=== PATIENT | male | born 1995 | race Caucasian/White ===

== ENCOUNTER 2017-01-18 17:36 | Emergency (ER) | payer SELFPAY ==
[~2017-01-18] VITALS: Ht 167.6 cm; Wt 66.2 kg
[2017-01-18 19:38] LABS: BASOPHIL % 0.5 % (0-2); PLATELET COUNT 216 x10^3mcL (130-400)
[2017-01-18 19:50] LABS: CALCIUM 9.7 mg/dL (8.5-10.1); CARBON DIOXIDE 28.4 mmol/L (21-32); CHLORIDE SERUM 83 mmol/L (98-107); CREATININE SERUM 1.1 mg/dL (0.7-1.3); GFR1 > 60 mL/min; GLUCOSE SERUM 106 mg/dL (74-106); POTASSIUM SERUM 3.4 mmol/L (3.5-5.1)
[2017-01-18 20:15] LABS: ALBUMIN 4.9 g/dL (3.4-5.0); ALKALINE PHOSPHATASE 105 U/L (46-116); ALT/SGPT 16 U/L (16-63); AMYLASE 91 U/L (25-115); AST/SGOT 13 U/L (15-37); BILIRUBIN TOTAL 2.18 mg/dL (0.20-1.00); LIPASE 116 IU/L (73-393); SODIUM SERUM 138 mmol/L (136-145); TOTAL PROTEIN, SERUM 7.9 g/dL (6.4-8.2)
[2017-01-18 21:20] VITALS: BP 125/66
== END 2017-01-18 21:20 | disposition home or self-care (01) ==
LOC: ED 17:36
PROVIDERS: Emergency Medicine
DX: R19.7 Diarrhea, unspecified (principal); R11.10 Vomiting, unspecified; F12.90 Cannabis use, unspecified, uncomplicated; Z79.899 Other long term (current) drug therapy
CPT/HCPCS: 80307; 83880; J1885; J2405; J7030

== ENCOUNTER 2017-08-10 10:35 | Emergency (ER) | payer SELFPAY ==
[2017-08-10 11:33] LABS: BASOPHIL % 0.3 % (0-2); PLATELET COUNT 204 x10^3mcL (130-400); RED CELL DISTRIBUTION WIDTH 13.7 % (11.5-14.5)
[2017-08-10 11:36] LABS: CALCIUM 9.3 mg/dL (8.5-10.1); CARBON DIOXIDE 28.2 mmol/L (21-32); CHLORIDE SERUM 104 mmol/L (98-107); CREATININE SERUM 0.9 mg/dL (0.7-1.3); GFR1 > 60 mL/min; GLUCOSE SERUM 101 mg/dL (74-106); POTASSIUM SERUM 3.8 mmol/L (3.5-5.1); SODIUM SERUM 139 mmol/L (136-145)
[2017-08-10 11:38] LABS: ALBUMIN 4.2 g/dL (3.4-5.0); ALKALINE PHOSPHATASE 91 U/L (46-116); ALT/SGPT 17 U/L (16-63); AMYLASE 103 U/L (25-115); AST/SGOT 15 U/L (15-37); BILIRUBIN TOTAL 2.09 mg/dL (0.20-1.00); LIPASE 104 IU/L (73-393); TOTAL PROTEIN, SERUM 7.6 g/dL (6.4-8.2)
[2017-08-10 11:53] LABS: AMPHETAMINE QUAL UR NONE DETECTED (NEG <=1000)
[2017-08-10 13:44] LABS: BASOPHIL % 0.5 % (0-2); PLATELET COUNT 174 x10^3mcL (130-400); RED CELL DISTRIBUTION WIDTH 13.6 % (11.5-14.5)
[2017-08-10 14:19] VITALS: BP 120/65
== END 2017-08-10 14:19 | disposition home or self-care (01) ==
LOC: ED 10:35
PROVIDERS: Emergency Medicine
DX: K29.00 Acute gastritis without bleeding (principal); F12.90 Cannabis use, unspecified, uncomplicated
CPT/HCPCS: 83880; J2550; J3490; Q0092

== ENCOUNTER 2017-08-11 10:19 | Inpatient (IN) | payer MEDICAID ==
[~2017-08-11] VITALS: Ht 170.2 cm; Wt 64.9 kg
[2017-08-11 11:04] LABS: BASOPHIL % 0.2 % (0-2); PLATELET COUNT 271 x10^3mcL (130-400); RED CELL DISTRIBUTION WIDTH 13.6 % (11.5-14.5)
[2017-08-11 11:26] LABS: CALCIUM 9.4 mg/dL (8.5-10.1); CARBON DIOXIDE 24.9 mmol/L (21-32); CHLORIDE SERUM 104 mmol/L (98-107); CREATININE SERUM 1.2 mg/dL (0.7-1.3); GFR1 > 60 mL/min; GLUCOSE SERUM 142 mg/dL (74-106); POTASSIUM SERUM 3.7 mmol/L (3.5-5.1); SODIUM SERUM 140 mmol/L (136-145)
[2017-08-11 11:34] LABS: ALBUMIN 4.3 g/dL (3.4-5.0); ALKALINE PHOSPHATASE 88 U/L (46-116); ALT/SGPT 18 U/L (16-63); AST/SGOT 14 U/L (15-37); BILIRUBIN TOTAL 2.18 mg/dL (0.20-1.00); TOTAL PROTEIN, SERUM 7.7 g/dL (6.4-8.2)
[2017-08-11 12:22] LABS: microscopic required? YES; urine erythrocyte NEGATIVE (NEGATIVE)
[2017-08-11 13:07] VITALS: BP 126/68
[2017-08-11 13:15] LABS: AMPHETAMINE QUAL UR NONE DETECTED (NEG <=1000)
[2017-08-11 13:24] LABS: FREE T4 1.43 ng/dL (0.76-1.46); FREE THYROXINE INDEX 4.1 ug/dL (1.4-4.5); T4(THYROXINE) 10.9 ug/dL (4.7-13.3)
[2017-08-11 13:53] LABS: MAGNESIUM 1.8 mg/dL (1.8-2.4); PHOSPHOROUS 2.6 mg/dL (2.5-4.9)
[2017-08-11 14:56] LABS: T3 TOTAL 1.07 ng/mL
[2017-08-11 16:37] VITALS: BP 123/79
[2017-08-11 21:03] VITALS: BP 136/83
[2017-08-12] VITALS (7 sets, daily range): BP systolic 119–142; BP diastolic 64–87
[2017-08-12 06:45] LABS: BASOPHIL % 0.4 % (0-2); PLATELET COUNT 174 x10^3mcL (130-400); RED CELL DISTRIBUTION WIDTH 13.6 % (11.5-14.5)
[2017-08-12 07:04] LABS: CALCIUM 8.8 mg/dL (8.5-10.1); CARBON DIOXIDE 26.4 mmol/L (21-32); CHLORIDE SERUM 108 mmol/L (98-107); CREATININE SERUM 0.9 mg/dL (0.7-1.3); GFR1 > 60 mL/min; GLUCOSE SERUM 107 mg/dL (74-106); POTASSIUM SERUM 4.2 mmol/L (3.5-5.1); SODIUM SERUM 141 mmol/L (136-145)
[2017-08-13 05:23] VITALS: BP 121/75
[2017-08-13 09:29] VITALS: BP 142/79
[2017-08-13] MEDS ORDERED: LEVOFLOXACIN500 M1 PO (11:36)
[2017-08-13] MEDS ORDERED: GOOD SENSE OMEP20 MG PO (11:37)
[2017-08-13] MEDS ORDERED: LAC PO (11:39)
[2017-08-13] MEDS ORDERED: CARAFATE1 GM/10 ML PO (11:40)
[2017-08-13 12:38] VITALS: BP 128/67
[2017-08-13 13:21] VITALS: BP 128/67
== END 2017-08-13 15:00 | disposition home or self-care (01) | DRG 241 ==
LOC: ED 10:19 → DU 11:59
PROVIDERS: Emergency Medicine; Family Medicine; Internal Medicine; ADMIT Family Medicine
PROC: 0W3P8ZZ Control Bleeding in Gastrointestinal Tract, Via Natural or Artificial Opening Endoscopic (ICD-10-PCS; principal; 2017-08-12 08:30)
PROC: 0DB68ZX Excision of Stomach, Via Natural or Artificial Opening Endoscopic, Diagnostic (ICD-10-PCS; 2017-08-12 08:30)
DX: K26.0 Acute duodenal ulcer with hemorrhage (principal); N17.0 Acute kidney failure with tubular necrosis; D62 Acute posthemorrhagic anemia; R65.10 Systemic inflammatory response syndrome (SIRS) of non-infectious origin without acute organ dysfunction; D18.03 Hemangioma of intra-abdominal structures; F12.10 Cannabis abuse, uncomplicated; Z68.22 Body mass index [BMI] 22.0-22.9, adult
CPT/HCPCS: 43235; 84439; 87046; 87046-59; C9113; G0480; J0171; J1200; J1610; J1956; J2250; J2310; J2405; J3010; J3490; J7030; Q0092

== ENCOUNTER 2019-02-18 13:59 | Emergency (ER) | payer MEDICAID ==
[~2019-02-18] VITALS: Ht 170.2 cm; Wt 77.1 kg
[~2019-02-18 13:59] MED LIST: CARAFATE1 GM/10 ML PO; GOOD SENSE OMEP20 MG PO; LAC PO; LEVOFLOXACIN500 M1 PO
[2019-02-18 15:50] LABS: UA SPECIFIC GRAVITY <=1.005 (1.005-1.035); microscopic required? YES; urine erythrocyte 2+ (NEGATIVE)
[2019-02-18 16:55] VITALS: BP 136/80
== END 2019-02-18 16:55 | disposition home or self-care (01) ==
LOC: ED 13:59
PROVIDERS: Emergency Medicine
DX: R31.9 Hematuria, unspecified (principal); R30.0 Dysuria; Z98.890 Other specified postprocedural states
CPT/HCPCS: 87491; 87591

== ENCOUNTER 2019-05-25 00:30 | Emergency (ER) | payer SELFPAY ==
[~2019-05-25] VITALS: Ht 170.2 cm; Wt 86.2 kg
[2019-05-25 01:39] VITALS: BP 129/80
== END 2019-05-25 01:39 | disposition home or self-care (01) ==
LOC: ED 00:30
DX: N39.0 Urinary tract infection, site not specified (principal)
CPT/HCPCS: 87491; 87591

== ENCOUNTER 2019-09-20 17:35 | Emergency (ER) | payer SELFPAY ==
[~2019-09-20] VITALS: Ht 167.6 cm; Wt 88.5 kg
[2019-09-20 17:45] VITALS: BP 140/80; Ht 167.6 cm; Wt 88.5 kg
== END 2019-09-20 18:45 | disposition home or self-care (01) ==
LOC: ED 17:35
DX: S62.326A Displaced fracture of shaft of fifth metacarpal bone, right hand, initial encounter for closed fracture (principal); Z98.890 Other specified postprocedural states; Y04.0XXA Assault by unarmed brawl or fight, initial encounter; Y93.89 Activity, other specified; Y92.89 Other specified places as the place of occurrence of the external cause; Y99.8 Other external cause status